=== PATIENT | male | born 1990 | race Caucasian/White ===

== ENCOUNTER 2017-08-28 21:49 | Emergency (ER) | payer OTHER ==
[2017-08-28 23:07] LABS: Hematocrit 43 % (42-52); Hemoglobin 14.8 g/dl (14.0-18.0); Mean Corpuscular HGB Conc 34 g/dl (31-36); Mean Corpuscular Hemoglobin 31 pg (27-31); Mean Corpuscular Volume 90 fL (80-94); Mean Platelet Volume 8 um3 (7.4-10.4); Red Cell Distribution Width 13 % (10.5-15); White Blood Count 5.2 10^3/ul (3.5-10.8)
[2017-08-28 23:25] LABS: Albumin 4.3 g/dL (3.2-5.2); BUN/Creatinine Ratio 17.6 (8-20); C Reactive Protein 4.59 mg/L (< 5.00); Calcium 9.4 mg/dL (8.6-10.3); EGFR African American 128.5 (>60); EGFR Non-African American 99.9 (>60); Globulin 2.8 g/dL (2-4); Potassium 3.4 mmol/L (3.5-5.0); Total Bilirubin 0.3 mg/dL (0.2-1.0); Total Protein 7.1 g/dL (6.4-8.9)
--- NOTE | 2017-08-29 00:16 | ED ---
Abdominal Pain/Male - HPI Summary HPI Summary: 27 male presents to ED with complaints of lower abdominal discomfort that has been ongoing for the past 2-3 weeks, intermittently. Pain "moves" but mainly lower area. States it is a pressure and sometime sharp and shooting. Denies abnormal bowel movements. States he actually has frequent bowel movements, admits to straining sometimes. States today he had some blood after using the bathroom. Denies diarrhea. No radiation of pain. States blood was bright red in color. Denies urinary and genitalia symptoms. PMHx includes GERD. No other complaints. Has not taken any medications. Has been eating normally. No recent travel, no recent antibiotic use. No nausea/vomiting, fever/chills. - History of Current Complaint Chief Complaint: EDAbdPain Stated Complaint: ABD PAIN/BLOOD IN STOOL Time Seen by Provider: 08/28/17 22:50 Hx Obtained From: Patient Onset/Duration: Sudden Onset Timing: Intermittent Severity Initially: Mild Severity Currently: Mild Pain Intensity: 1 Pain Scale Used: 0-10 Numeric Location: Diffuse - changes locations Radiates: No Character: Sharp, Cramping - pressure Aggravating Factor(s): Nothing Alleviating Factor(s): Bowel Movement, Spontaneous Resolution Associated Signs And Symptoms: Positive: Blood in Stool. Negative: Fever, Back Pain, Urinary Symptoms, Decreased Appetite, Nausea, Vomiting, Diarrhea - Allergies/Home Medications Allergies/Adverse Reactions: Allergies Allergy/AdvReac Type Severity Reaction Status Date / Time No Known Allergies Allergy Verified 08/28/17 21:57 PMH/Surg Hx/FS Hx/Imm Hx Endocrine/Hematology History: Denies: Hx Diabetes, Hx Thyroid Disease Cardiovascular History: Denies: Hx Hypertension, Other Cardiovascular Problems/Disorders Respiratory History: Reports: Hx Sleep Apnea - MILD Denies: Hx Asthma, Hx Chronic Obstructive Pulmonary Disease (COPD) GI History: Reports: Hx Gastroesophageal Reflux Disease Denies: Hx Ulcer, Other GI Disorders History: Reports: Hx Kidney Stones - RIGHT Sensory History: Reports: Hx Contacts or Glasses - GLASSES Denies: Hx Hearing Aid Opthamlomology History: Reports: Hx Contacts or Glasses - GLASSES Neurological History: Denies: Other Neuro Impairments/Disorders - Surgical History Surgery Procedure, Year, and Place: RIGHT URETERAL STENT, 08/09/15, then stents removed 08/2015. WISDOM TEETH Hx Anesthesia Reactions: No - Immunization History Immunizations Up to Date: Yes Infectious Disease History: No Infectious Disease History: Denies: Hx Clostridium Difficile, Hx Hepatitis, Hx Human Immunodeficiency Virus (HIV), Hx of Known/Suspected MRSA, Hx Shingles, Hx Tuberculosis, Hx Known/ Suspected VRE, Hx Known/Suspected VRSA, History Other Infectious Disease, Traveled Outside the [place] in Last 30 Days - Family History Known Family History: Positive: Cardiac Disease - Social History Alcohol Use: Occasionally Alcohol Amount: 1 PER DAY Hx Substance Use: No Substance Use Type: Reports: None Hx Tobacco Use: No Smoking Status (MU): Former Smoker Have You Smoked in the Last Year: No Review of Systems Constitutional: Negative Cardiovascular: Negative Respiratory: Negative Positive: Abdominal Pain, Other - hematochezia Skin: Negative All Other Systems Reviewed And Are Negative: Yes Physical Exam Triage Information Reviewed: Yes Vital Signs On Initial Exam: Initial Vitals Temp Pulse Resp BP Pulse Ox 99.0 F 90 16 133/82 97 08/28/17 21:50 08/28/17 21:50 08/28/17 21:50 08/28/17 21:50 08/28/17 21:50 Vital Signs Reviewed: Yes Appearance: Positive: Well-Appearing, No Pain Distress, Well-Nourished Skin: Positive: Warm, Skin Color Reflects Adequate Perfusion, Dry. Negative: Cold, Cyanosis @, Pale, Erythema @ Head/Face: Positive: Normal Head/Face Inspection Eyes: Positive: Conjunctiva Clear ENT: Positive: Hearing grossly normal, Pharynx normal Neck: Positive: Supple, Nontender Respiratory/Lung Sounds: Positive: Clear to Auscultation, Breath Sounds Present. Negative: Rales, Rhonchi, Wheezes Cardiovascular: Positive: Normal, RRR, Pulses are Symmetrical in both Upper and Lower Extremities. Negative: Murmur, Rub Abdomen Description: Positive: Nontender - "pressure, discomfort" no pain, No Organomegaly, Soft, Distended. Negative: CVA Tenderness (R), CVA Tenderness (L) , Guarding, McBurney's Point Tenderness, Peritoneal Signs Bowel Sounds: Positive: Present Male Genital Exam: Positive: normal genitalia, other - external rectal exam normal without abnormal findings, active bleeding or hemmorhoids Musculoskeletal: Positive: Normal, Strength/ROM Intact Neurological: Positive: Normal, Sensory/Motor Intact, Alert, Oriented to Person Place, Time - Brandon Coma Scale Coma Scale Total: 15 Diagnostics - Vital Signs Vital Signs Temp Pulse Resp BP Pulse Ox 08/28/17 21:50 99.0 F 90 16 133/82 97 - Laboratory Lab Results: Lab Results 08/28/17 08/28/17 Range/Units 22:43 22:43 WBC 5.2 (3.5-10.8) 10^3/ul RBC 4.80 (4.0-5.4) 10^6/ul Hgb 14.8 (14.0-18.0) g/dl Hct 43 (42-52) % MCV 90 (80-94) fL MCH 31 (27-31) pg MCHC 34 (31-36) g/dl RDW 13 (10.5-15) % Plt Count 184 (150-450) 10^3/ul MPV 8 (7.4-10.4) um3 Neut % (Auto) 52.7 (38-83) % Lymph % (Auto) 37.1 (25-47) % Smyth % (Auto) 8.2 (1-9) % Eos % (Auto) 1.2 (0-6) % Baso % (Auto) 0.8 (0-2) % Absolute Neuts (auto) 2.7 (1.5-7.7) 10^3/ul Absolute Lymphs (auto) 1.9 (1.0-4.8) 10^3/ul Absolute Monos (auto) 0.4 (0-0.8) 10^3/ul Absolute Eos (auto) 0.1 (0-0.6) 10^3/ul Absolute Basos (auto) 0 (0-0.2) 10^3/ul Absolute Nucleated RBC 0.01 10^3/ul Nucleated RBC % 0.2 Sodium 138 (133-145) mmol/L Potassium 3.4 L (3.5-5.0) mmol/L Chloride 106 (101-111) mmol/L Carbon Dioxide 24 (22-32) mmol/L Anion Gap 8 (2-11) mmol/L BUN 16 (6-24) mg/dL Creatinine 0.91 (0.67-1.17) mg/dL Est GFR ( Amer) 128.5 (>60) Est GFR (Non-Af Amer) 99.9 (>60) BUN/Creatinine Ratio 17.6 (8-20) Glucose 94 (70-100) mg/dL Calcium 9.4 (8.6-10.3) mg/dL Total Bilirubin 0.30 (0.2-1.0) mg/dL AST 31 (13-39) U/L ALT 31 (7-52) U/L Alkaline Phosphatase 63 (34-104) U/L C-Reactive Protein 4.59 (< 5.00) mg/L Total Protein 7.1 (6.4-8.9) g/dL Albumin 4.3 (3.2-5.2) g/dL Globulin 2.8 (2-4) g/dL Albumin/Globulin Ratio 1.5 (1-3) Lipase 31 (11.0-82.0) U/L Result Diagrams: 08/28/17 22:43 08/28/17 22:43 Lab Statement: Any lab studies that have been ordered have been reviewed, and results considered in the medical decision making process. - Radiology abdomen Xray Interpretation: No Acute Changes - stool in ascending colon, normal radiography without obstruction Radiology Interpretation Completed By: ED Physician - myself and Dr Eagle Abdominal Pain Fem Course/Dx - Course Course Of Treatment: not currently in any pain. patient gave stool sample that showed bright red blood. refused additional rectal. normal PE findings no obvious findings of external rectal abnormalities. Normal labs, normal urine and normal abdominal xray with some stool build up. Appears to be suffering from a possible anal fissure due to increased frequency of bowel movements and straining movements. no concern of other emergent etiology at this time. such as bowel obstruction, diverticulitis, appey, joss, gi bleed, colitis, etc. due to labs, HPI and PE findings. encouraged high fiber diet and stool softener to help with easier bowel movements to avoid tearing anal fissure. follow up with pcp and GI specialist to ensure improvement. Aware of worsening signs and symptoms to return for. Increase fluid intake. - Diagnoses Differential Diagnosis/HQI/PQRI: Bowel Obstruction, Constipation, Diverticulitis , Other - hematochezia, anal fissure Provider Diagnoses: Bright red rectal bleeding, Abdominal pain Discharge - Discharge Plan Condition: Stable Disposition: HOME Patient Education Materials: Constipation (ED), Rectal Bleeding (ED), High Fiber Diet (ED), Abdominal Pain (ED) Referrals: Roxana PERKINS,Gerardo Roman [Primary Care Provider] - Jeffry Temple MD [Medical Doctor] - Additional Instructions: Recommend taking stool softeners to avoid worsening possible anal fissure, as needed. High fiber diet to help with bowel movements. Increase fluid intake. Follow up with PCP and GI specialist for further work up. Any new or worsening symptoms (increased pain, vomiting, fever/chills, increased bleeding) please seek medical attention and return to ED as discussed.
[2017-08-29 00:25] LABS: Urine Bilirubin Negative (Negative); Urine Glucose Negative (Negative); Urine Nitrite Negative (Negative)
[2017-08-29 00:38] VITALS: BP 129/74
--- NOTE | 2017-08-29 07:37 | RAD ---
HISTORY: Lower abdominal pain COMPARISONS: August 20, 2015 VIEWS: Frontal supine and upright views of the abdomen. FINDINGS: BOWEL: There is a nonobstructive bowel gas pattern. There is large amount of stool within the ascending and transverse colon. CALCULI: There are no abnormal calculi. BONES AND SOFT TISSUES: There are no osseous abnormalities. OTHER FINDINGS: The lung bases are clear. There is no subphrenic gas. IMPRESSION: NONOBSTRUCTIVE BOWEL GAS PATTERN. LARGE AMOUNT OF STOOL WITHIN THE PROXIMAL COLON.
== END 2017-08-29 00:37 | disposition home or self-care (01) ==
LOC: ED 21:49
DX: K62.5 Hemorrhage of anus and rectum (principal); R10.30 Lower abdominal pain, unspecified; K59.00 Constipation, unspecified; G47.30 Sleep apnea, unspecified; K21.9 Gastro-esophageal reflux disease without esophagitis; Z87.442 Personal history of urinary calculi; Z87.891 Personal history of nicotine dependence
CPT/HCPCS: 36415; 74020; 80053; 81003; 83690; 85025; 86140; 86850; 86900; 86901; 99282

== ENCOUNTER 2017-09-13 09:07 | Emergency (ER) | payer OTHER ==
[2017-09-13 09:44] VITALS: BP 157/102
--- NOTE | 2017-09-13 09:58 | UC ---
Throat Pain/Nasal [place] HPI - HPI Summary HPI Summary: Pt presents with sinus symptoms. He tells me that for about a month he has been battling a "head cold", consisting of sinus pain/pressure/congestion. He has tried OTC mucinex and ibuprofen with great relief initially - but soon his symptoms returned. About 1 week ago he developed a ST and laryngitis, which he took robitussin OTC for and gave him good relief for a few days, but his symptoms returned. Currently he has sinus congestion/pain/pressure, ST, and dry cough. Denies fever, chills, SOB, chest pain, abdominal pain, N/V/D/C. - History of Current Complaint Chief Complaint: UCRespiratory Stated Complaint: SORE THROAT CONGESTION Time Seen by Provider: 09/13/17 09:58 Hx Obtained From: Patient Onset/Duration: Gradual Onset Severity: Moderate Cough: Nonproductive - Allergies/Home Medications Allergies/Adverse Reactions: Allergies Allergy/AdvReac Type Severity Reaction Status Date / Time No Known Allergies Allergy Verified 09/13/17 09:43 Home Medications: Home Medications Pseudoephedrine TAB* [Sudafed TAB*] 30 mg PO Q4H PRN 09/13/17 [History Confirmed 09/13/17] Robitussin Dm 1 dose PO Q4H PRN 09/13/17 [History Confirmed 09/13/17] PMH/Surg Hx/FS Hx/Imm Hx Previously Healthy: Yes - Surgical History Surgical History: Yes Surgery Procedure, Year, and Place: RIGHT URETERAL STENT, 08/09/15, then stents removed 08/2015. WISDOM TEETH - Family History Known Family History: Positive: Cardiac Disease - Social History Occupation: Employed Full-time Lives: With Family Alcohol Use: Occasionally Alcohol Amount: 1 PER DAY Substance Use Type: None Smoking Status (MU): Current Some Day Smoker Have You Smoked in the Last Year: No Cessation Counseling: Counseled 3+Min - 10 Min - Immunization History Most Recent Influenza Vaccination: never Most Recent Tetanus Shot: 2010 Most Recent Pneumonia Vaccination: never Review of Systems Constitutional: Negative Skin: Negative Eyes: Negative ENT: Sore Throat, Nasal Discharge, Sinus Congestion, Sinus Pain/Tenderness Respiratory: Cough Cardiovascular: Negative Gastrointestinal: Negative Neurovascular: Negative Musculoskeletal: Negative Psychological: Negative All Other Systems Reviewed And Are Negative: Yes Physical Exam Triage Information Reviewed: Yes Appearance: Well-Appearing, Well-Nourished Vital Signs: Initial Vital Signs Temp 97.7 F 09/13/17 09:34 Pulse 18 09/13/17 09:34 Resp 18 09/13/17 09:34 BP 157/102 09/13/17 09:34 Pulse Ox 100 09/13/17 09:34 Vital Signs Reviewed: Yes Eyes: Positive: Conjunctiva Clear. Negative: Conjunctiva Inflamed, Discharge ENT: Positive: Hearing grossly normal, Pharynx normal, Nasal congestion, Nasal drainage, TMs normal, Sinus tenderness, Uvula midline. Negative: Pharyngeal erythema, TM bulging, TM dull, TM red, Tonsillar swelling, Tonsillar exudate, Muffled voice, Hoarse voice Neck: Positive: Supple, Nontender, No Lymphadenopathy Respiratory: Positive: Chest non-tender, Lungs clear, Normal breath sounds, No respiratory distress, No accessory muscle use Cardiovascular: Positive: RRR, No Murmur, Pulses Normal Neurological: Positive: Alert Psychological: Positive: Age Appropriate Behavior Skin: Negative: rashes Throat Pain/Nasal Course/Dx - Course Course Of Treatment: Sinusitis - Amoxicillin 10 days. Bronchitis. Complains of cough at night and trouble falling/staying asleep - requests guaifenesin with codeine and I believe this is reasonable in the short term. - Differential Dx/Diagnosis Differential Diagnosis/HQI/PQRI: Influenza, Mononucleosis, Otitis Media, Pharyngitis, Sinusitis, Tonsillitis, URI Provider Diagnoses: Sinusitis. Bronchitis Discharge - Discharge Plan Condition: Stable Disposition: HOME Prescriptions: Amoxicillin PO (*) [Amoxicillin 500 MG CAP*] 500 mg PO Q12H #20 cap Guaifenesin-Codeine [G Tussin AC 100-10 mg/5Ml] 5 ml PO BEDTIME PRN #20 ml MDD 5mL PRN Reason: Cough Patient Education Materials: Sinusitis (ED), Acute Bronchitis (ED) Referrals: Roxana PERKINS,Gerardo Roman [Primary Care Provider] - Additional Instructions: If you develop a fever, SOB, chest pain, new or worsening symptoms - please call your PCP or go to the ED. Your blood pressure was high at todays visit. Please see your primary provider within 4 weeks for recheck and re-evaluation.
== END 2017-09-13 10:15 | disposition home or self-care (01) ==
LOC: UCCORT 09:07
DX: J32.9 Chronic sinusitis, unspecified (principal); J40 Bronchitis, not specified as acute or chronic; F17.200 Nicotine dependence, unspecified, uncomplicated
CPT/HCPCS: 99212; G0463

== ENCOUNTER 2018-03-25 09:04 | Emergency (ER) | payer OTHER ==
--- NOTE | 2018-03-25 10:02 | UC ---
UC General HPI - HPI Summary HPI Summary: sore throat x 3 days. - History of Current Complaint Stated Complaint: SORE THROAT Time Seen by Provider: 03/25/18 09:49 Hx Obtained From: Patient Onset/Duration: Gradual Onset Timing: Constant Aggravating: swallow Associated Signs & Symptoms: Negative: Fever - Allergy/Home Medications Allergies/Adverse Reactions: Allergies Allergy/AdvReac Type Severity Reaction Status Date / Time No Known Allergies Allergy Verified 03/25/18 09:59 PMH/Surg Hx/FS Hx/Imm Hx GI/ History: Gastroesophageal Reflux - Surgical History Surgical History: Yes Surgery Procedure, Year, and Place: RIGHT URETERAL STENT, 08/09/15, then stents removed 08/2015. WISDOM TEETH - Family History Known Family History: Positive: Cardiac Disease - Social History Occupation: Employed Full-time Lives: With Family Alcohol Use: Occasionally Alcohol Amount: 1 PER DAY Substance Use Type: None Smoking Status (MU): Current Some Day Smoker Have You Smoked in the Last Year: No - Immunization History Most Recent Influenza Vaccination: never Most Recent Tetanus Shot: 2010 Most Recent Pneumonia Vaccination: never Hx Tetanus, Diphtheria Vaccination: No Vaccination Up to Date: Yes Review of Systems Constitutional: Negative Skin: Negative Eyes: Negative ENT: Sore Throat Respiratory: Negative Cardiovascular: Negative Gastrointestinal: Negative Genitourinary: Negative Motor: Negative Neurovascular: Negative Musculoskeletal: Negative Neurological: Negative Psychological: Negative Is Patient Immunocompromised?: No All Other Systems Reviewed And Are Negative: Yes Physical Exam Triage Information Reviewed: Yes Appearance: Well-Appearing Eyes: Positive: Conjunctiva Clear ENT: Positive: Pharyngeal erythema - with vesicles on uvula, TMs normal. Negative: Nasal congestion, Nasal drainage Neck: Positive: Supple, Nontender, No Lymphadenopathy. Negative: Nuchal Rigidity Respiratory: Positive: Lungs clear, Normal breath sounds Cardiovascular: Positive: RRR, No Murmur Abdomen Description: Positive: Nontender, No Organomegaly, Soft. Negative: Distended, Guarding Bowel Sounds: Positive: Present Musculoskeletal: Positive: ROM Intact Neurological: Positive: Alert Psychological: Positive: Age Appropriate Behavior Skin Exam: Normal Diagnostics - Laboratory Diagnostic Studies Completed/Ordered: rapid strep=neg Course/Dx - Course Course Of Treatment: rapid strep=neg, tx supportive. no hx htn - Differential Dx - Multi-Symptom Provider Diagnoses: pharyngitis. elevated BP Discharge - Sign-Out/Discharge Documenting (check all that apply): Discharge/Admit/Transfer - Discharge Plan Condition: Stable Disposition: HOME Patient Education Materials: Pharyngitis (ED), Hypertension (ED) Referrals: Gerardo Goode [Primary Care Provider] - 7 Days Additional Instructions: HAVE YOUR PROVIDER RECHECK YOUR bp IN1 WEEK - Billing Disposition and Condition Condition: STABLE Disposition: Home
[2018-03-25 10:06] VITALS: BP 142/79
== END 2018-03-25 10:39 | disposition home or self-care (01) ==
LOC: UCCORT 09:04
DX: J02.9 Acute pharyngitis, unspecified (principal); R03.0 Elevated blood-pressure reading, without diagnosis of hypertension; F17.210 Nicotine dependence, cigarettes, uncomplicated
CPT/HCPCS: 87651; 99211; G0463

== ENCOUNTER 2018-08-03 08:52 | Emergency (ER) | payer OTHER ==
--- NOTE | 2018-08-03 10:37 | UC ---
Respiratory Complaint HPI - HPI Summary HPI Summary: The patient is a 28-year-old male that presents here with the onset of cough and shortness of breath that started yesterday. He denies any fever or chills. He states that he has back and left upper chest pain when he takes a deep breath in. He feels better laying down. He has a remote history of asthma. States he has not felt wheezy. If he takes a deep breath then he starts coughing. He states that for approximately one week he has had fatigue and felt like he was going to get ill. Denies any nausea vomiting or diarrhea. He denies diaphoresis. - History of Current Complaint Chief Complaint: UCRespiratory Stated Complaint: CHEST CONGESTION Time Seen by Provider: 08/03/18 10:30 Hx Obtained From: Patient Onset/Duration: Gradual Onset, Lasting Hours Timing: Constant Severity Initially: Mild Severity Currently: Severe Pain Intensity: 8 Pain Scale Used: 0-10 Numeric Character: Cough: Nonproductive Aggravating Factors: Deep Breaths Alleviating Factors: Other - recumbant position Associated Signs And Symptoms: Positive: Dyspnea, Pleuritic Chest Pain. Negative: Wheezing, Hemoptysis, Dizziness, Calf Pain, Calf Swelling, Edema, URI , Nasal Congestion, Hoarseness, Sinus Discomfort - Allergies/Home Medications Allergies/Adverse Reactions: Allergies Allergy/AdvReac Type Severity Reaction Status Date / Time No Known Allergies Allergy Verified 08/03/18 09:13 PMH/Surg Hx/FS Hx/Imm Hx Previously Healthy: Yes Respiratory History: Asthma, Bronchitis - Surgical History Surgical History: Yes Surgery Procedure, Year, and Place: RIGHT URETERAL STENT, 08/09/15, then stents removed 08/2015. WISDOM TEETH - Family History Known Family History: Positive: Cardiac Disease, Hypertension - Social History Alcohol Use: Daily Alcohol Amount: whiskey nightly Substance Use Type: None Smoking Status (MU): Current Some Day Smoker Type: Smokeless Tobacco Amount Used/How Often: 1 can daily Have You Smoked in the Last Year: No - Immunization History Most Recent Influenza Vaccination: never Most Recent Tetanus Shot: 2010 Most Recent Pneumonia Vaccination: never Hx Tetanus, Diphtheria Vaccination: No Vaccination Up to Date: Yes Review of Systems Constitutional: Fatigue Skin: Negative Eyes: Negative ENT: Negative Respiratory: Shortness Of Breath, Cough Cardiovascular: Chest Pain Gastrointestinal: Negative Genitourinary: Negative Motor: Negative Neurovascular: Negative Musculoskeletal: Negative Neurological: Negative Psychological: Negative All Other Systems Reviewed And Are Negative: Yes Physical Exam Triage Information Reviewed: Yes Appearance: Well-Appearing, No Pain Distress, Well-Nourished Vital Signs: Initial Vital Signs Temp 98.4 F 08/03/18 09:13 Pulse 83 08/03/18 09:13 Resp 15 08/03/18 09:13 BP 144/86 08/03/18 09:13 Pulse Ox 99 08/03/18 09:13 Vital Signs Reviewed: Yes Eyes: Positive: Conjunctiva Clear ENT: Positive: Hearing grossly normal, Pharynx normal, TMs normal, Uvula midline. Negative: Nasal congestion, Nasal drainage, Trismus, Muffled voice, Hoarse voice, Dental tenderness, Sinus tenderness Neck: Positive: Supple, Nontender, No Lymphadenopathy Respiratory: Positive: Accessory muscle use, Other: - bronchospastic cough with forced expiration Cardiovascular: Positive: RRR Musculoskeletal: Positive: ROM Intact, No Edema Neurological: Positive: Alert Psychological Exam: Normal Skin Exam: Normal UC Diagnostic Evaluation - Laboratory O2 Sat by Pulse Oximetry: 99 - normal/not hypoxic - Radiology Radiology Interpretation Completed By: Radiologist Jes de la fuente Summary of Radiographic Findings: mild cardiomegaly - CT CT Interpretation Completed By: Radiologist Summary of CT Findings: 1. LIMITED STUDY. WITHIN THE LIMITATIONS OF THE STUDY, THERE IS NO PULMONARY ARTERIAL. FILLING DEFECTS TO SUGGEST PULMONARY EMBOLISM. 2. ENLARGEMENT OF THE MAIN PULMONARY ARTERY CONSISTENT WITH PULMONARY ARTERIAL. HYPERTENSIO - EKG Cardiac Rate: NL Cardiac Rhythm: Sinus: Normal Ectopy: None ST Segment: Normal Re-Evaluation - Re-Evaluation First Eval Re-Evaluation Time: 12:18 Change: Improved - slight improvement after neb/now having mild left lateral neck pain with deep inspiration Second Eval Re-Evaluation Time: 13:30 Change: Unchanged Comment: no longer dyspneic, no increased WOB, peak flow 350 Respiratory Course/Dx - Differential Dx/Diagnosis Provider Diagnoses: pulmonary hypertension. pleurisy. bronchospasm Discharge - Sign-Out/Discharge Documenting (check all that apply): Patient Departure All imaging exams completed and their final reports reviewed: Yes - Discharge Plan Condition: Stable Disposition: HOME Prescriptions: predniSONE [Deltasone 20 MG TAB] 40 mg PO DAILY #10 tab Patient Education Materials: Pleurisy (ED), Pulmonary Arterial Hypertension (ED ) Forms: *Work Release Referrals: Roxana PERKINS,Gerardo Roman [Primary Care Provider] - 3 Days Additional Instructions: Your BP was elevated here 154/96 Your EKG was normal Your CXR showed no pneumonia Your CT of the chest showed pulmonary hypertension GO TO THE ER FOR shortness of breath fever increased pain See your provider first available appt You may need another sleep study You may need referral to a affiliate marketing manager (lung specialist) use inhaler as directed take copies of chest XR and CTA with you - Billing Disposition and Condition Condition: STABLE Disposition: Home
[2018-08-03] MEDS ORDERED: Albuterol 2.5 MG/3 ML NEB.SOL* (0.083%) INH ONE ×2 (11:30→11:33)
[2018-08-03] MEDS ORDERED: Ipratropium 0.5MG/2.5ML NEB* 0.5 MG/2.5 ML NEB.SOLN INH ONE (11:30)
[2018-08-03] MEDS ORDERED: Ipratropium 0.5MG/2.5ML NEB* 0.5 MG/2.5 ML NEB.SOLN ONE (11:34)
--- NOTE | 2018-08-03 11:45 | RAD ---
Indication: Cough, shortness of breath. 2 views of the chest including dual energy PA views are reviewed and compared to previous exam dated August 10, 2015. No mediastinal shift is noted. There is cardiomegaly noted. The lung hamilton demonstrate no pleural fluid, pneumonia or pneumothorax. IMPRESSION: CARDIOMEGALY. NO ACTIVE CARDIOPULMONARY DISEASE IS NOTED.
[2018-08-03] MEDS ORDERED: Iohexol 350* (CONTRAST) 500 ML MDV IV ONE (12:30)
[2018-08-03 12:33] VITALS: BP 148/98
--- NOTE | 2018-08-03 13:11 | RAD ---
HISTORY: pleuritic CP/sob COMPARISONS: None TECHNIQUE: Multiple contiguous axial CT scans of the chest were obtained after the administration of nonionic intravenous contrast, timed to the pulmonary arterial phase of contrast enhancement.. Coronal and sagittal multiplanar reformations are also submitted for review. FINDINGS: Evaluation is limited due to suboptimal contrast opacification. The attenuation of the main pulmonary artery is between 200-250 Hounsfield units, which is considered borderline, but diagnostic, for the detection of pulmonary embolism. NECK AND THYROID: The lower neck and thyroid are unremarkable. CHEST WALL: There is no lower cervical, axillary, or supraclavicular lymphadenopathy by size criteria. HEART AND PERICARDIUM: The heart is unremarkable. AORTA AND PULMONARY VASCULATURE: Evaluation is limited by suboptimal contrast opacification. Within the limitations of the study, there is no pulmonary arterial filling defects to suggest pulmonary embolism. The pulmonary artery is diffusely enlarged compared to the aorta measuring up to 4 cm in transverse diameter. MEDIASTINUM: There is no mediastinal lymphadenopathy by size criteria. JENNIE: There is no hilar lymphadenopathy by size criteria. AIRWAY AND ESOPHAGUS: The airway is unremarkable, without endobronchial filling defect. The esophagus is grossly normal. LUNG PARENCHYMA: The lungs are clear. PLEURA: No pleural abnormalities are noted. UPPER ABDOMEN: The upper abdomen is unremarkable. BONES AND SOFT TISSUES: There is a mild scoliotic curvature of the spine. OTHER: None. IMPRESSION: 1. LIMITED STUDY. WITHIN THE LIMITATIONS OF THE STUDY, THERE IS NO PULMONARY ARTERIAL FILLING DEFECTS TO SUGGEST PULMONARY EMBOLISM. 2. ENLARGEMENT OF THE MAIN PULMONARY ARTERY CONSISTENT WITH PULMONARY ARTERIAL HYPERTENSION
[2018-08-03] MEDS ORDERED: predniSONE TAB* 20 MG PO ONE (13:28)
[2018-08-03] MEDS ORDERED: Ketorolac INJ* 30 MG/ML 1 ML VIAL IV ONE (13:29)
[2018-08-03] MEDS ORDERED: Albuterol HFA INHALER* 8 gm MDI INH ONE (13:30)
== END 2018-08-03 13:58 | disposition home or self-care (01) ==
LOC: UCCORT 08:52
DX: I27.20 Pulmonary hypertension, unspecified (principal); R09.1 Pleurisy; J98.01 Acute bronchospasm; I51.7 Cardiomegaly; F17.220 Nicotine dependence, chewing tobacco, uncomplicated
CPT/HCPCS: 71046; 71275; 93005; 96374; 99213; A9270-GY; G0463; J1885; J7512; Q9967

== ENCOUNTER 2018-08-17 17:25 | Emergency (ER) | payer OTHER ==
--- OUTSIDE RECORDS SUMMARY | 2018-08-17 17:40 | XMS REPORT ---
:1990 External Reference #:[id number] Author Organization [employer] Address [address] [place] [address] Phone [phone] Care Team Providers Name Role Phone Gerardo Schmidt PA Primary Care Physician Unavailable Payers Type Date Identification Numbers Payment Provider Subscriber Commercial Expires: 2016 Policy Number: [id number] Obdulia Wu PayID: [id number] [address] [place] [address] Medigap Part B Expires: 2016 Policy Number: [facility] [facility] Hal Marcus [id number] PayID: [id number] [address] [place] [address] Commercial Policy Number: [id number] Ben Wu PayID: [id number] [address] [place] [address] Problems Description No Information Family History Date Family Member(s) Problem(s) Comments Siblings 2 Social History Type Date Description Comments Marital Status Lives With Lives With Children x3 Occupation [employer] Cigarette Use Patient uses chewing tobacco 1/2 can a day ETOH Use Currently consumes alcohol 1 drink a day Recreational Drug Use Former Drug User Daily Caffeine Consumes on average 1 cup of regular coffee per day Daily Caffeine Consumes on average 1 cup of hot tea per day Exercise Type/Frequency Exercises regularly Allergies, Adverse Reactions, Alerts Date Description Reaction Status Severity Comments 08/09/2018 NKDA active Medications Medication Date Status Form Strength Qnty SIG Indications Ordering Provider Protonix Active Tablets DR 40mg 1 by Unknown 0 mouth every day Vital Signs Date Vital Result Comment 08/09/2018 Height 72 inches 6'0" Weight 271.38 lb Heart Rate 80 /min BP Systolic Sitting 132 mmHg Lue large cuff BP Diastolic Sitting 92 mmHg Lue large cuff Respiratory Rate 20 /min O2 % BldC Oximetry 98 % BMI (Body Mass Index) 36.8 kg/m2 Neck Circumference in inches 17 Results Description No Information Procedures Description No Information Encounters Type Date Location Provider CPT E/M Dx Office Visit 08/09/2018 [facility] [place] [address] I27.20 10:00a [facility] Q22.0 R06.83 E66.01 [facility] Jermaine Jha M.D. 31212 R50.81 Hospitalists R65.10 Plan of Care Future Appointment(s):09/17/2018 8:45 am - April Conteh MD at [facility]08/09/2018 - April Conteh MDI27.20 Pulmonary hypertension, unspecifiedNew Orders:EchocardiogramFollow up:1 aududB62.0 Pulmonary valve ziqsdvjC00.83 SnoringNew Orders:Sleep QwcrgT95.01 Morbid (severe ) obesity due to excess calories
[2018-08-17] MEDS ORDERED: oxyCODONE/Acetamin 5/325 MG* TAB PO ONE (21:54)
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
[2018-08-17 22:53] VITALS: BP 140/85
== END 2018-08-17 22:40 | disposition home or self-care (01) ==
LOC: ED 17:25
DX: S30.22XA Contusion of scrotum and testes, initial encounter (principal); W50.0XXA Accidental hit or strike by another person, initial encounter; Y93.83 Activity, rough housing and horseplay; Y92.9 Unspecified place or not applicable; Z72.0 Tobacco use
CPT/HCPCS: 76870; 99282; A9270-GY